=== PATIENT | female | born 1995 | race Two or more races ===

== ENCOUNTER 2019-09-06 10:43 | Emergency (ER) | payer BC ==
[~2019-09-06] VITALS: Ht 160 cm; Wt 53.9 kg
[2019-09-06 10:55] VITALS: BP 112/76
[2019-09-06] MEDS ORDERED: FLUT16SP NS (11:06)
[2019-09-06] MEDS ORDERED: FEXO1TAB31 PO (11:06)
--- NOTE | 2019-09-06 11:07 | PHYS DOC ---
Adult General Chief Complaint Chief Complaint: Runny nose HPI HPI Patient is a 24 year old [place] female who presents with complaint of 1 month of clear rhinorrhea and sneezing and this morning she states that she coughed up a small amount of blood. Denies fever, chills, travel, sick exposures or recent sickness otherwise. Has been taking [id number] antihistamine without relief. Review of Systems Review of Systems All other systems were reviewed and found to be within normal limits, except as documented in this note. Allergies Allergies Allergies Coded Allergies Type Severity Reaction Last Updated Verified No Known Drug Allergies 09/06/19 No Physical Exam Physical Exam Constitutional: Well developed, well nourished, no acute distress, non-toxic appearance. [] HENT: Normocephalic, atraumatic, bilateral external ears normal, oropharynx moist, no oral exudates, inflamed nasal mucosa bilaterally with postnasal drainage and mild posterior pharynx erythema without exudate. Eyes: PERRLA, EOMI, conjunctiva normal, no discharge. [] Neck: Normal range of motion, no tenderness, supple, no stridor. [] Cardiovascular:Heart rate regular rhythm, no murmur [] Lungs & Thorax: Bilateral breath sounds clear to auscultation [] Abdomen: Bowel sounds normal, soft, no tenderness, no masses, no pulsatile masses. [] Skin: Warm, dry, no erythema, no rash. [] Back: No tenderness, no CVA tenderness. [] Extremities: No tenderness, no cyanosis, no clubbing, ROM intact, no edema. [] Neurologic: Alert and oriented X 3, normal motor function, normal sensory function, no focal deficits noted. [] Psychologic: Affect normal, judgement normal, mood normal. [] EKG EKG [] Radiology/Procedures Radiology/Procedures [] Course & Med Decision Making Course & Med Decision Making Pertinent Labs and Imaging studies reviewed. (See chart for details) This patient was seen for rhinorrhea and sneezing; symptoms are consistent with seasonal allergies. Will start on fluticasone and Rbian-D. Patient is to establish care with a primary care physician and follow-up in 1 to 2 weeks. Dragon Disclaimer Dragon Disclaimer This electronic medical record was generated, in whole or in part, using a voice recognition dictation system. Departure Departure Impression: Primary Impression: Seasonal allergic rhinitis Disposition: HOME, SELF-CARE Condition: STABLE Referrals: NO PCP (PCP) Patient Instructions: Allergic Rhinitis Additional Instructions: Please find a doctor and follow up in 1-2 weeks. Scripts Fexofenadine/Pseudoephedrine (BRIAN-D 24 HOUR TABLET) 1 Each Tab.er.24h 1 TAB PO DAILY for 30 Days, #30 TAB 0 Refills Prov: KIMMY LEE DO 09/06/19 Fluticasone Propionate (FLUTICASONE PROPIONATE NASAL SPRAY) 16 Gm [place].susp 2 SPRAY NS DAILY, #1 INHALER 0 Refills Prov: KIMMY LEE DO 09/06/19 KIMMY LEE DO Sep 06, 2019 11:07
== END 2019-09-06 11:16 | disposition home or self-care (01) ==
LOC: ER 10:43
DX: J30.9 Allergic rhinitis, unspecified (principal); R06.2 Wheezing; L53.9 Erythematous condition, unspecified
CPT/HCPCS: 99283

== ENCOUNTER → 2021-02-18 | Outpatient (CLI) | payer BC ==
[~2021-02-18] MED LIST: FEXO1TAB31 PO; FLUT16SP NS
--- NOTE | 2021-02-18 14:24 | RAD ---
EXAM: Ultrasound US OB >14 WEEKS 02/18/2021 10:58 AM INDICATION: Small for dates. Gestational age by LMP 22 weeks 3 days COMPARISON: None FINDINGS: There is a single living intrauterine gestation in breech position. heart rate is 140 bpm. Plac enta is anterior. Cervix measures 3.6 cm. The following anatomy as visualized: Head, cerebellum, lateral ventricles, stomach, kidneys, bl adder, cord insertion, three-vessel cord, diaphragm, nose/lips, 4 extremities. There is suboptimal ev aluation of the cervical, thoracic, lumbar spine, and four-chamber heart, due to positioning of the f etus. biometry: Biparietal diameter: 5.80 cm, 23 weeks 5 days Head circumference: 21.22 cm, 23 weeks 2 days Abdominal circumference: 17.18 cm, 22 weeks 1 day Femur length: 4.00 cm, 22 weeks 6 days HC/AC ratio: 1.24 PAOLO: Subjectively normal Estimated gestational age by ultrasound: 23 weeks 0 days. Estimated weight: 519 g. Sonographic EDC: 06/17/2021 IMPRESSION: 1. Single living intrauterine in breech position with gestational age by ultrasound 23 week s 0 days. Estimated weight 519 g. Sonographic EDC 06/17/2021. 2. Suboptimal evaluation of four-chamber heart and spine due to positioning of the fetus. Recommend f ollow-up ultrasound to reevaluate. Electronically signed by: Carla Miramontes MD (02/18/2021 2:22 PM) [id number]
== END ==
LOC: US 11:03
PROVIDERS: ATTEND Family Medicine
DX: O32.1XX0 Maternal care for breech presentation, not applicable or unspecified (principal); Z3A.23 23 weeks gestation of pregnancy
CPT/HCPCS: 76805

== ENCOUNTER → 2021-05-17 | Outpatient (CLI) | payer BC, OTHER ==
--- NOTE | 2021-05-18 15:00 | RAD ---
OB ultrasound greater than 14 weeks 05/17/2021 Clinical History: Third trimester . Small for dates. Technique: A real-time ultrasound examination of the gravid uterus was performed. Multiple images wer e obtained. Findings: Comparison study is dated 02/18/2021. There is a single living IUP. The fetus is in acephalic position. cardiac and somatic activity is seen. The heart rate is 113 beats per minutes. The The placenta is anterior. No abnormality is seen. The amniotic fluid volume is within normal limits. The PAOLO measures 10.2 cm . Neither matern al ovary is visualized. The following measurements were obtained: BPD 8.89cm 36 weeks 0 days HC 31.69 cm 35weeks 4 days AC 30.4 cm 34weeks 3 days FL 6.89 cm 35 weeks 3 days The estimated gestational age by ultrasound is 35 weeks 3 days plus or minus a standard deviation of 3 weeks. The estimated date of delivery by ultrasound on today's study is 06/18/2021. Since the previou s examination there has been appropriate interval growth. The estimated weight is 2550 g +/- 377 g( 5 lbs. 10 oz.) No abnormality is seen. The 4 chamber heart and spine are well-visualized and within norm al limits. Impression: Single living IUP with an estimated gestational age by ultrasound of 35 weeks3 days +/- a standard deviation of 3 weeks. Since the previous examination there has been appropriate interval fe ricardo growth. Electronically signed by: Washington Berrios MD (05/18/2021 2:58 PM) [id number]
== END ==
LOC: US 14:54
PROVIDERS: ATTEND Family Medicine
DX: O00.01 Abdominal pregnancy with intrauterine pregnancy (principal); Z3A.35 35 weeks gestation of pregnancy
CPT/HCPCS: 76805

== ENCOUNTER 2021-05-31 15:55 | Observation (INO) | payer OTHER ==
[2021-05-31] MEDS ORDERED: IV RINGERS,LACTATED 1000ML 1,000 ML IV PRN (16:30)
[2021-05-31 16:33] LABS: BILIRUBIN,URINE NEGATIVE (NEG); CLARITY,URINE CLEAR; COLOR,URINE YELLOW; NITRITE,URINE NEGATIVE (NEG); PROTEIN,URINE NEGATIVE (NEG-TRACE)
[2021-05-31 17:01] LABS: BACTERIA,URINE FEW /HPF (0-FEW)
[2021-05-31 17:02] LABS: RBC,URINE 0 /HPF (0-2)
== END 2021-05-31 18:20 | disposition home or self-care (01) ==
LOC: 3 SO LND 15:55
PROVIDERS: ADMIT Family Medicine; ATTEND Family Medicine
DX: O99.891 Other specified diseases and conditions complicating pregnancy (principal); M54.9 Dorsalgia, unspecified; O62.9 Abnormality of forces of labor, unspecified; Z3A.37 37 weeks gestation of pregnancy
CPT/HCPCS: 59025; 81001; 87086; G0378; G0379

== ENCOUNTER 2021-06-15 05:59 | Inpatient (IN) | payer OTHER ==
[~2021-06-15] VITALS: Ht 157.5 cm; Wt 64.4 kg
[2021-06-15] MEDS ORDERED: ONDANSETRON PF 4 MG/2 ML VIAL. IVP PRN (06:15)
[2021-06-15] MEDS ORDERED: IBUPROFEN 400 MG TABLET. PO PRN (06:15)
[2021-06-15] MEDS ORDERED: 0.9 % SODIUM CHLORIDE 10 ML DISP.SYRIN. IV PRN ×2 (06:15→13:30)
[2021-06-15] MEDS ORDERED: TERBUTALINE 1 MG/ML VIAL. SQ PRN (06:15)
[2021-06-15] MEDS ORDERED: BUTORPHANOL 2 MG/ML VIAL. IV PRN (06:15)
[2021-06-15] MEDS ORDERED: LIDOCAINE 1% PF 30 ML VIAL. INJ PRN (06:15)
[2021-06-15] MEDS ORDERED: OXYTOCIN 30 UNIT/500 ML PREMIX 500 ML IV PRN ×3 (06:15→13:30)
[2021-06-15 07:11] VITALS: BP 127/69
[2021-06-15 07:20] LABS: BASO % 0 % (0-3); EOS # 0.1 x10^3/uL (0.0-0.7); EOS % 1 % (0-3); HEMATOCRIT 30.5 % (36.0-47.0); LYMPH # 2.5 x10^3/uL (1.0-4.8); LYMPH % 22 % (24-48); MEAN CORPUSCULAR HEMOGLOBIN 26 pg (25-35); MEAN CORPUSCULAR HGB CONC 33 g/dL (31-37); MEAN CORPUSCULAR VOLUME 81 fL (79-100); MONO # 0.9 x10^3/uL (0.0-1.1); MONO % 7 % (0-9); NEUT # 8.3 x10^3/uL (1.8-7.7); NEUT % 70 % (31-73); PLATELET COUNT 295 x10^3/uL (140-400); RED BLOOD COUNT 3.79 x10^6/uL (3.50-5.40); RED CELL DISTRIBUTION WIDTH 14.7 % (11.5-14.5); WHITE BLOOD COUNT 11.9 x10^3/uL (4.0-11.0)
[2021-06-15 08:10] LABS: BILIRUBIN,URINE NEGATIVE (NEG); CLARITY,URINE CLEAR; COLOR,URINE YELLOW; NITRITE,URINE NEGATIVE (NEG); PROTEIN,URINE NEGATIVE (NEG-TRACE)
[2021-06-15 08:38] LABS: BACTERIA,URINE FEW /HPF (0-FEW); RBC,URINE 0 /HPF (0-2)
[2021-06-15] MEDS ORDERED: fentaNYL PF VIAL 100 MCG/2 ML VIAL ONE (10:05)
[2021-06-15] MEDS ORDERED: L&D EPIDURAL SYRINGE 50 ML ONE (10:06)
[2021-06-15] MEDS ORDERED: ROPIVacaine 0.2% PF 10 ML VIAL. ONE ×2 (10:08→10:30)
[2021-06-15] MEDS: IV RINGERS,LACTATED 1000ML 1,000 ML IV SCH ×3 (10:23→22:15)
[2021-06-15] MEDS ORDERED: L&D EPIDURAL 50 ML SYRINGE. ONE (10:30)
--- NOTE | 2021-06-15 13:28 | PDOC1 ---
OB - History Hx of Present Care: Good Care Ultrasounds: Normal mid trimester US Obstetrical Complications: None Medical Complications: None Past Family/Social History * Past Medical, Surgical, Family and Obstetric Histories reviewed from chart. Blood Type: O+ Rubella: Immune RPR/VDRL: Negative GBS Status: Negative HBsAG: Negative OB - Chief Complaint & HPI Date of Admission: Date of Admission: Jun 15, 2021 at 05:59 Chief Complaint/History : 1 Para: 0 EDC: Jun 21, 2021 Reason for admission: induction of labor Indication for induction: other (Small for dates) Admission Nurse Assessment Rev: Yes OB - Admission Exam Physical Exam Vitals: VS - Last 72 Hours, by Label Date Time Temp Pulse Resp B/P (MAP) Pulse Ox O2 Delivery O2 Flow Rate FiO2 06/15/21 07:11 98.0 72 18 127/69 (88) Room Air 98.0 HEENT: Normal, Nasal Mucosa Normal, Oropharynx Normal, Moist Membranes, Fontanelles Normal Lungs: Clear, Equal Abdomen: Gravid Extremities: Normal Pulses, No tenderness or swelling Reflexes: Normal Cervical Dilatation: 3cm Effacement: 75% Station: -2 Membranes: Intact Amniotic Fluid: Clear (After AROM) Heart Rate: Normal Accelerations: Accelerations Present Decelerations: No decelerations Short Term Variability: Present Jail Variability: Moderate Contractions on Admission: < 5 Minutes Apart Intensity: Moderate FARHAN VELAZQUEZ MD Jun 15, 2021 13:28
[2021-06-15] MEDS ORDERED: ZOLPIDEM 5 MG TABLET. PO PRN (13:30)
[2021-06-15] MEDS ORDERED: SIMETHICONE 80 MG TAB.CHEW PO PRN (13:30)
[2021-06-15] MEDS ORDERED: BENZOCAINE 20% TOPICAL AEROSOL SPRAY 57GM CAN. TP PRN (13:30)
[2021-06-15] MEDS ORDERED: TDaP (BOOSTRIX) per PROTOCOL. MC PRN (13:30)
[2021-06-15] MEDS ORDERED: ACETAMINOPHEN 325 MG TABLET. PO PRN (13:30)
[2021-06-15] MEDS ORDERED: MMR per PROTOCOL. MC PRN (13:30)
[2021-06-15] MEDS ORDERED: HYDROCORTISONE 1% TOPICAL OINTMENT 30GM TUBE. TP PRN (13:30)
[2021-06-15] MEDS ORDERED: MAGNESIUM HYDROXIDE 2,400 MG/30 ML ORAL.SUSP. PO PRN (13:30)
[2021-06-15] MEDS ORDERED: diphenhydrAMINE HCL 25 MG CAPSULE PO PRN (13:30)
[2021-06-15] MEDS ORDERED: PHENYLEPH/MINERAL OIL/PETROLAT RECTAL OINTMENT TUBE. RC PRN (13:30)
[2021-06-15] MEDS ORDERED: MAG HYDROX/ALUMINUM HYD/SIMETH 30 ML ORAL.SUSP PO PRN (13:30)
--- NOTE | 2021-06-15 13:49 | SSS ---
DATE OF SERVICE: 06/15/2021 ADMIT DATE: 06/15/2021 DELIVERY NOTE CLINICAL COURSE: This patient is a 26-year-old G1, P0 [place] female admitted for term induction with EDC of 06/21/2021 due to small for dates, rule out IUGR. The patient had no risks and underwent Pitocin augmentation arriving with dilatation of 2-3 cm and 75% effacement and -2 station. She proceeded to labor with Pitocin, achieving a complete. At this point, the patient remained intact and artificial rupture of membranes was done with clear fluid noted. was delivered in the OA position over a second-degree midline laceration and a right-sided periurethral laceration. Head was delivered and suctioned. Subsequently, body was delivered. There was 30 seconds of cord resuscitation. Infant had spontaneous cry and no gross abnormalities. Cord was clamped, transected and the infant was handed off. Placenta was then delivered intact with a 3-vessel cord noted. Uterus was firm with Pitocin and palpation. There was less than 200 mL blood loss. Midline laceration was closed with 3-0 chromic in a running locking fashion. The right-sided periurethra was closed with a 3-0 chromic suture in a running fashion. There was good hemostasis. Mother and baby to recovery in stable condition. No complications at this delivery. KENJI DR: Joey TID: [id number]
[2021-06-15] MEDS: IBUPROFEN 400 MG TABLET. PO SCH ×2 (14:00→22:09)
[2021-06-15 16:30] VITALS: BP 129/78
[2021-06-15 20:00] VITALS: BP 127/65
[2021-06-15] MEDS: FERROUS SULFATE 325 MG TABLET. PO SCH (20:10)
[2021-06-16] VITALS: BP 120/77
[2021-06-16] MEDS: HYDROcodone/APAP 5/325MG 1 TAB TABLET PO PRN ×4 (00:05→20:10)
[2021-06-16 04:30] VITALS: BP 120/66
[2021-06-16] MEDS: IV RINGERS,LACTATED 1000ML 1,000 ML IV SCH (06:15)
[2021-06-16] MEDS: IBUPROFEN 400 MG TABLET. PO SCH ×2 (06:21→14:28)
[2021-06-16 08:29] LABS: BASO # 0.1 x10^3/uL (0.0-0.2); BASO % 0 % (0-3); EOS # 0.2 x10^3/uL (0.0-0.7); EOS % 1 % (0-3); HEMATOCRIT 29.2 % (36.0-47.0); HEMOGLOBIN 9.5 g/dL (12.0-15.5); LYMPH # 3.3 x10^3/uL (1.0-4.8); LYMPH % 23 % (24-48); MEAN CORPUSCULAR HEMOGLOBIN 26 pg (25-35); MEAN CORPUSCULAR HGB CONC 32 g/dL (31-37); MEAN CORPUSCULAR VOLUME 81 fL (79-100); MONO % 7 % (0-9); NEUT # 9.8 x10^3/uL (1.8-7.7); NEUT % 69 % (31-73); PLATELET COUNT 253 x10^3/uL (140-400); RED BLOOD COUNT 3.61 x10^6/uL (3.50-5.40); RED CELL DISTRIBUTION WIDTH 14.7 % (11.5-14.5); WHITE BLOOD COUNT 14.3 x10^3/uL (4.0-11.0)
[2021-06-16] MEDS ORDERED: MULTIVITAMIN with MINERAL TABLET. PO SCH (09:00)
[2021-06-16 09:45] VITALS: BP 113/58
[2021-06-16 14:30] VITALS: BP 123/66
--- NOTE | 2021-06-16 17:42 | PDOC ---
PROGRESS NOTES Date of Service DATE: 06/16/21 TIME: 17:40 Subjective Subjective Patient doing well day 1. Decreased bleeding. Tolerating diet. Ambulating well. Voiding well. Good pain control Objective Objective Vital Signs Date Time Temp Pulse Resp B/P (MAP) Pulse Ox O2 Delivery O2 Flow Rate FiO2 06/16/21 15:57 18 Room Air 06/16/21 14:30 99.0 82 123/66 (85) 99.0 Physical Exam Abdomen: Normal bowel sounds, Other (Soft nontender uterus firm below umbilicus) Heart: Regular rate Extremities: No edema General: Alert Lungs: Clear to auscultation MUSCULOSKELETAL: Other (Negative Homans) Assessment Assessment day #1 spontaneous vaginal delivery Plan Plan of Care Routine care continue bottle and breast-feed Comment Review of Relevant I have reviewed the following items [place] (where applicable) has been applied. Labs Laboratory Tests Test 06/15/21 06:25 06/15/21 06:50 06/16/21 06:40 Urine Collection Type Unknown Urine Color Yellow Urine Clarity Clear Urine pH 7.0 (<5.0-8.0) Urine Specific [place] 1.020 (1.000-1.030) Urine Protein Negative mg/dL (NEG-TRACE) Urine Glucose (UA) Negative mg/dL (NEG) Urine Ketones (Stick) Negative mg/dL (NEG) Urine Blood Negative (NEG) Urine Nitrite Negative (NEG) Urine Bilirubin Negative (NEG) Urine Urobilinogen Dipstick 1.0 mg/dL (0.2 mg/dL) Urine Leukocyte Esterase Small (NEG) Urine RBC 0 /HPF (0-2) Urine WBC 5-10 /HPF (0-4) Urine Squamous Epithelial Cells Many /LPF Urine Bacteria Few /HPF (0-FEW) Urine Mucus Slight /LPF White Blood Count 11.9 x10^3/uL (4.0-11.0) 14.3 x10^3/uL (4.0-11.0) Red Blood Count 3.79 x10^6/uL (3.50-5.40) 3.61 x10^6/uL (3.50-5.40) Hemoglobin 10.0 g/dL (12.0-15.5) 9.5 g/dL (12.0-15.5) Hematocrit 30.5 % (36.0-47.0) 29.2 % (36.0-47.0) Mean Corpuscular Volume 81 fL (79-100) 81 fL (79-100) Mean Corpuscular Hemoglobin 26 pg (25-35) 26 pg (25-35) Mean Corpuscular Hemoglobin Concent 33 g/dL (31-37) 32 g/dL (31-37) Red Cell Distribution Width 14.7 % (11.5-14.5) 14.7 % (11.5-14.5) Platelet Count 295 x10^3/uL (140-400) 253 x10^3/uL (140-400) Neutrophils (%) (Auto) 70 % (31-73) 69 % (31-73) Lymphocytes (%) (Auto) 22 % (24-48) 23 % (24-48) Monocytes (%) (Auto) 7 % (0-9) 7 % (0-9) Eosinophils (%) (Auto) 1 % (0-3) 1 % (0-3) Basophils (%) (Auto) 0 % (0-3) 0 % (0-3) Neutrophils # (Auto) 8.3 x10^3/uL (1.8-7.7) 9.8 x10^3/uL (1.8-7.7) Lymphocytes # (Auto) 2.5 x10^3/uL (1.0-4.8) 3.3 x10^3/uL (1.0-4.8) Monocytes # (Auto) 0.9 x10^3/uL (0.0-1.1) 1.0 x10^3/uL (0.0-1.1) Eosinophils # (Auto) 0.1 x10^3/uL (0.0-0.7) 0.2 x10^3/uL (0.0-0.7) Basophils # (Auto) 0.0 x10^3/uL (0.0-0.2) 0.1 x10^3/uL (0.0-0.2) Treponema pallidum Antibody Nonreactive (Nonreactive) Laboratory Tests Test 06/16/21 06:40 White Blood Count 14.3 x10^3/uL (4.0-11.0) Red Blood Count 3.61 x10^6/uL (3.50-5.40) Hemoglobin 9.5 g/dL (12.0-15.5) Hematocrit 29.2 % (36.0-47.0) Mean Corpuscular Volume 81 fL (79-100) Mean Corpuscular Hemoglobin 26 pg (25-35) Mean Corpuscular Hemoglobin Concent 32 g/dL (31-37) Red Cell Distribution Width 14.7 % (11.5-14.5) Platelet Count 253 x10^3/uL (140-400) Neutrophils (%) (Auto) 69 % (31-73) Lymphocytes (%) (Auto) 23 % (24-48) Monocytes (%) (Auto) 7 % (0-9) Eosinophils (%) (Auto) 1 % (0-3) Basophils (%) (Auto) 0 % (0-3) Neutrophils # (Auto) 9.8 x10^3/uL (1.8-7.7) Lymphocytes # (Auto) 3.3 x10^3/uL (1.0-4.8) Monocytes # (Auto) 1.0 x10^3/uL (0.0-1.1) Eosinophils # (Auto) 0.2 x10^3/uL (0.0-0.7) Basophils # (Auto) 0.1 x10^3/uL (0.0-0.2) Microbiology 06/15/21 Urine Culture - Final, Complete Medications Current Medications Sodium Chloride (Normal Saline Flush) 3 ml QSHIFT PRN IV AFTER MEDS AND BLOOD DRAWS; Start 06/15/21 at 06:15 Ringer's Solution 1,000 ml @ 125 mls/hr Q8H IV Last administered on 06/15/21at 10:27; Start 06/15/21 at 06:15 Terbutaline Sulfate (Brethine) 0.25 mg 1X PRN PRN SQ SEE COMMENTS; Start 06/15/21 at 06:15; Stop 06/16/21 at 06:14; Status DC Lidocaine HCl (Xylocaine 1% Pf 30ml Vial) 30 ml 1X PRN PRN INJ SEE COMMENTS; Start 06/15/21 at 06:15; Stop 06/17/21 at 06:14 Oxytocin 500 ml @ 0 mls/hr CONT PRN IV SEE I/O RECORD Last administered on 06/15/21at 10:24; Start 06/15/21 at 06:15 Oxytocin 500 ml @ 0 mls/hr CONT PRN PRN IV Post delivery bleeding; Start 06/15/21 at 06:15 Ibuprofen (Motrin) 800 mg PRN Q6HRS PRN PO MODERATE PAIN 4-6; Start 06/15/21 at 06:15; Stop 06/15/21 at 13:35; Status DC Butorphanol Tartrate (Stadol) 2 mg PRN Q2HRS PRN IV LABOR PAIN; Start 06/15/21 at 06:15 Ondansetron HCl (Zofran) 4 mg PRN Q6HRS PRN IVP NAUSEA/VOMITING 1ST CHOICE Last administered on 06/15/21at 11:51; Start 06/15/21 at 06:15 Fentanyl Citrate (Fentanyl 2ml Vial) 100 mcg STK-MED ONCE .ROUTE ; Start 06/15/21 at 10:05; Stop 06/15/21 at 10:06; Status DC Fentanyl Citrate 50 ml @ As Directed STK-MED ONCE .ROUTE ; Start 06/15/21 at 10:06; Stop 06/15/21 at 10:06; Status DC Ropivacaine (Naropin 0.2%) 10 ml STK-MED ONCE .ROUTE ; Start 06/15/21 at 10:08; Stop 06/15/21 at 10:08; Status DC Sodium Chloride (Normal Saline Flush) 10 ml QSHIFT PRN IV AFTER MEDS AND BLOOD DRAWS; Start 06/15/21 at 13:30 Oxytocin 500 ml @ 62.5 mls/hr CONT PRN IV SEE I/O RECORD; Start 06/15/21 at 13:30; Stop 06/15/21 at 21:29; Status DC Acetaminophen (Tylenol) 650 mg PRN Q6HRS PRN PO MILD PAIN / TEMP > 100.3'F; Start 06/15/21 at 13:30 Ibuprofen (Motrin) 800 mg Q8HRS PO Last administered on 06/16/21at 14:28; Start 06/15/21 at 14:00 Magnesium Hydroxide (Milk Of Magnesia) 2,400 mg PRN DAILY PRN PO CONSTIPATION; Start 06/15/21 at 13:30 Al Hydroxide/Mg Hydroxide (Mylanta Plus Xs) 30 ml PRN Q4HRS PRN PO HEARTBURN / GAS; Start 06/15/21 at 13:30 Simethicone (Gas-X) 80 mg PRN AFTMEALHC PRN PO GAS / BLOATING; Start 06/15/21 at 13:30 Diphenhydramine HCl (Benadryl) 25 mg PRN Q6HRS PRN PO ITCHING; Start 06/15/21 at 13:30 Benzocaine (Americaine) 1 spray PRN QID PRN TP TOPICAL PAIN; Start 06/15/21 at 13:30 Phenyleph/Shark Oil/Min Oil/Petrol (Preparation H) 1 lon PRN QID PRN RC RECTAL PAIN; Start 06/15/21 at 13:30 Hydrocortisone (Cortaid) 1 lon PRN QID PRN TP PERINEAL PAIN; Start 06/15/21 at 13:30 Ferrous Sulfate (Feosol) 325 mg BIDWMEALS PO ; Start 06/16/21 at 08:00 Zolpidem Tartrate (Ambien) 5 mg PRN QHS PRN PO INSOMNIA, MAY REPEAT X1; Start 06/15/21 at 13:30 Info (Do NOT chart on this placeholder) 1 ea 1X PRN PRN MC SEE COMMENTS; Start 06/15/21 at 13:30 Info (Do NOT chart on this placeholder) 1 ea 1X PRN PRN MC SEE COMMENTS; Start 06/15/21 at 13:30 Multivitamins (Thera M Plus) 1 tab DAILY PO ; Start 06/16/21 at 09:00 Acetaminophen/ Hydrocodone Bitart (Lortab 5/325) 1 tab PRN Q4HRS PRN PO MILD PAIN 1-3, 2ND CHOICE Last administered on 06/16/21at 15:57; Start 06/15/21 at 13:30 Acetaminophen/ Hydrocodone Bitart (Lortab 5/325) 2 tab PRN Q4HRS PRN PO MODERATE PAIN, SEVERE PAIN Last administered on 06/16/21at 00:05; Start 06/15/21 at 13:30 Fentanyl Citrate (Tqmgliuz-Mghjd-PC 3 Mcg-0.1%) 50 ml STK-MED ONCE .ROUTE ; Start 06/15/21 at 10:30; Stop 06/16/21 at 09:07; Status DC Ropivacaine (Naropin 0.2%) 10 ml STK-MED ONCE .ROUTE ; Start 06/15/21 at 10:30; Stop 06/16/21 at 09:07; Status DC Active Scripts Active Symone-D 24 Hour Tablet (Fexofenadine/Pseudoephedrine) 1 Each Tab.er.24h 1 Tab PO DAILY 30 Days Fluticasone Propionate Nasal [place] (Fluticasone Propionate) 16 Gm [place].susp 2 [place] NS DAILY Vitals/I & O Vital Sign - Last 24 Hours 06/15/21 06/15/21 06/16/21 06/16/21 20:00 20:00 00:00 04:30 Temp 98.5 98.1 97.9 98.5 98.1 97.9 Pulse 80 63 75 Resp 18 20 18 B/P (MAP) 127/65 (85) 120/77 (91) 120/66 (84) O2 Delivery Room Air Room Air Room Air 06/16/21 06/16/21 06/16/21 06/16/21 09:45 14:29 14:30 15:57 Temp 97.9 99.0 97.9 99.0 Pulse 73 82 Resp 18 18 18 B/P (MAP) 113/58 (76) 123/66 (85) O2 Delivery Room Air Room Air Room Air Room Air Justifications for Admission Other Justification FARHAN VELAZQUEZ MD Jun 16, 2021 17:42
[2021-06-16 20:41] VITALS: BP 122/62
[2021-06-16] MEDS: FERROUS SULFATE 325 MG TABLET. PO SCH (21:10)
--- NOTE | 2021-06-16 21:10 | NUR ---
Scanned medication and it did not save.
[2021-06-17] MEDS: IBUPROFEN 400 MG TABLET. PO SCH (04:05)
--- NOTE | 2021-06-17 04:12 | NUR ---
Patient has complaints of nausea and vomiting. Offered medication or saltine crackers. Patient declined medication and chose crackers with water. Will continue to monitor symptoms.
[2021-06-17 04:16] VITALS: BP 137/83
--- NOTE | 2021-06-17 04:49 | NUR ---
provided patient chicken broth and suggested she remove the binder that she is wearing on abdomen temporarily until nausea ceases. Patient stated she didn't want to remove it at this time.
[2021-06-17 08:16] VITALS: BP 112/69
[2021-06-17] MEDS: FERROUS SULFATE 325 MG TABLET. PO SCH (09:09)
[2021-06-17] MEDS: HYDROcodone/APAP 5/325MG 1 TAB TABLET PO PRN (09:12)
--- NOTE | 2021-06-17 10:32 | PDOC3 ---
OB DISCHARGE SUMMARY DATE OF ADMISSION: 06/15/21 DATE OF DISCHARGE: 06/17/21 REASON FOR ADMISSION: Induction of labor INTRAPARTUM PROCEDURES: Spontanous Vag Deliv PROCEDURES: None DISCHARGE INFORMATION: Activity (no sexual activity 6 weeks) HOSPITAL COURSE Normal CONDITION AT DISCHARGE Stable f/u 6weeks FARHAN VELAZQUEZ MD Jun 17, 2021 10:32
[2021-06-17 12:40] VITALS: BP 123/69
--- NOTE | 2021-06-17 12:40 | NUR ---
dismissed amb to in car along with baby in car seat. Stable on feet Home care instructions given along with a copy.
== END 2021-06-17 12:40 | disposition home or self-care (01) | DRG 807 ==
LOC: 3 SO LND 05:59
PROVIDERS: ADMIT Family Medicine; ATTEND Family Medicine
PROC: 10E0XZZ Delivery of Products of Conception, External Approach (ICD-10-PCS; principal; 2021-06-15)
PROC: 0KQM0ZZ Repair Perineum Muscle, Open Approach (ICD-10-PCS; 2021-06-15)
PROC: 10907ZC Drainage of Amniotic Fluid, Therapeutic from Products of Conception, Via Natural or Artificial Opening (ICD-10-PCS; 2021-06-15)
PROC: 0UQMXZZ Repair Vulva, External Approach (ICD-10-PCS; 2021-06-15)
DX: O36.5930 Maternal care for other known or suspected poor fetal growth, third trimester, not applicable or unspecified (principal); Z37.0 Single live birth; O70.1 Second degree perineal laceration during delivery; O71.82 Other specified trauma to perineum and vulva; Z3A.38 38 weeks gestation of pregnancy
CPT/HCPCS: 36415; 81001; 85025; 86592; 86850; 86900; 86901; 87086; J2405; J2590; J2795; J3010; J7120; G0378

== ENCOUNTER 2021-09-03 07:02 | Day surgery (SDC) | payer OTHER ==
[~2021-09-03] VITALS: Ht 160 cm; Wt 52.2 kg
[~2021-09-03 07:02] MED LIST changes: +HYDROmorphone 2 MG/ML INJ. IVP PRN; +IV RINGERS,LACTATED 1000ML 1,000 ML IV SCH; +MORPHINE SULFATE 2 MG/ML INJ. IVP PRN; +PROCHLORPERAZINE 10 MG/2 ML VIAL. IVP PRN; +fentaNYL PF VIAL 100 MCG/2 ML VIAL IVP PRN
[2021-09-03 07:28] VITALS: BP 118/68
[2021-09-03] MEDS ORDERED: ceFAZolin SODIUM IV Push 1 GM VIAL. IVP PRN (08:00)
[2021-09-03] MEDS ORDERED: ACETAMINOPHEN 500 MG TABLET PO PRN (08:00)
[2021-09-03] MEDS ORDERED: BACITRACIN TOPICAL OINT PACKET. TP ONE (08:42)
[2021-09-03] MEDS ORDERED: BUPIVACAINE-EPI 0.25%-1:200000 MPF 30 ML VIAL. ONE (08:42)
[2021-09-03] MEDS ORDERED: ONDANSETRON PF 4 MG/2 ML VIAL. ONE (08:44)
[2021-09-03] MEDS ORDERED: DEXAMETHASONE SOD PHOS 4 MG/ML VIAL ONE (08:44)
[2021-09-03] MEDS ORDERED: LIDOCAINE 2% PF 5 ML VIAL. ONE (08:44)
[2021-09-03] MEDS ORDERED: SEVOFLURANE 31 TO 60 MINUTES. IH ONE (08:44)
[2021-09-03] MEDS ORDERED: PROPOFOL 10 MG/ML (20ML) VIAL. IV ONE (08:44)
[2021-09-03] MEDS ORDERED: MIDAZOLAM HCL/PF 2 MG/2 ML VIAL. ONE (08:45)
[2021-09-03] MEDS ORDERED: fentaNYL PF VIAL 100 MCG/2 ML VIAL ONE (08:45)
--- NOTE | 2021-09-03 09:18 | PDOC4 ---
Operative Note Operative Note Date: September 032021 at 9:16 AM Preoperative diagnosis: Anal tag Postoperative diagnosis: Same Procedure: Excision of anal tag Surgeon: Alexis Specimen: Anal tag Dictation: Patient is 26-year-old female with complaints of pain at the anus and a mass that is painful. Procedure of excision of tag was explained to the pa tient detail risk benefits were also discussed including bleeding infection alternatives this procedure also discussed with the patient seemed understand gave a verbal written consent had the procedure performed. Patient was taken to the operating room placed in supine position general anesthesia was initiated once patient was sleeping intubated she was placed in lithotomy positioning her perineum was prepped and draped usual sterile fashion and Betadine scrub and solution. Area around the anal skin tag was injected with quarter percent Marcaine with epinephrine the tag was excised at the base with 15 blade scalpel and cautery was used to control hemostasis. Skin tag was sent for pathology the wound was dressed with antibiotic ointment. Patient was awakened extubated operating room taken recovery in stable condition all sponge instrument needle counts listed as correct estimated blood loss less than 5 mL ASPEN SORIA MD Sep 03, 2021 09:18
[2021-09-03] MEDS ORDERED: OXYC-325 PO (09:20)
--- NOTE | 2021-09-03 09:21 | DISCH ---
DISCHARGE INSTRUCTIONS Condition on Discharge Condition on Discharge: Stable Activity After Discharge Activity Instructions for Disc: Resume previous activity Diet after Discharge Diet after Discharge: Regular Wound Incision Care Other wound/incision instructi: Dimple shower in 24 hours Contacting the [facility] after DC Call your doctor for: If your condition worsens Follow-Up Follow up with: Dr. Soria in 2 weeks ASPEN SORIA MD Sep 03, 2021 09:21
[2021-09-03] MEDS ORDERED: oxyCODONE/APAP 5/325 1 TAB TABLET PO ONE (09:45)
[2021-09-03 09:51] VITALS: BP 111/78
--- NOTE | 2021-09-06 16:16 | PATHOLOGY ---
[facility] Accession Number: [id number] . 01 Material submitted: . anal skin - ANAL SKIN TAG . 01 Clinical history: . ANAL SKIN TAG EXCISION ANAL SKIN TAGS . 02 Diagnosis: Skin, anal skin tag excision: - Cutaneous tag (Fibroepithelial polyp). (JPM/db; 09/06/2021) LBQ 09/06/2021 1453 Local . 02 Electronically signed: . Erikcson Mac MD, Pathologist NPI- [id number] . 01 Gross description: . The specimen is received in formalin, labeled "Li Par, anal skin tag". Received is a single, unoriented, irregularly-shaped, skin specimen, measuring 1.1 x 0.8 x 0.3 cm. The epidermal surface appears morales-coe, wrinkled and lobulated. The resection margin is inked green morales the specimen is bisected and entirely submitted in cassette A1. (J; 09/03/2021) J/J 09/03/2021 1725 Local . 02 Pathologist provided ICD-10: K64.4 . 02 CPT . 340693 Specimen Comment: A courtesy copy of this report has been sent to [phone], [phone] Specimen Comment: [id number] Specimen Comment: Report sent to / DR LEWIS Specimen Comment: A duplicate report has been generated due to demographic updates. Performed at: 01 [facility] [address] [facility] [address], [place] [id number] MD Michel Hardy MD Phone: [phone] Performed at: 02 [facility] [address], [place] [id number] MD Erickson Mac MD Phone: [phone]
== END 2021-09-03 10:36 | disposition home or self-care (01) ==
LOC: SURG 07:02
PROVIDERS: ATTEND Surgery
DX: K64.4 Residual hemorrhoidal skin tags (principal); Z79.899 Other long term (current) drug therapy; Z98.890 Other specified postprocedural states
CPT/HCPCS: 46220; 81025; A4930; J0690; J1100; J2250; J2405; J2704; J3010; J3490; 88304